=== PATIENT | male | born 1950 | race Caucasian/White ===

== ENCOUNTER 2021-11-04 07:41 | Emergency (ER) | payer MEDICAID ==
[~2021-11-04] VITALS: Ht 170.2 cm; Wt 104.5 kg
[2021-11-04] MEDS ORDERED: ACETAMINOPHEN 500 MG TABLET PO ONE (08:30)
[2021-11-04] MEDS ORDERED: HydrALAZINE HCL 20 MG/ML VIAL IVP ONE (08:30)
[2021-11-04] MEDS ORDERED: NITROGLYCERIN 2% (1 GM=INCH) PACKET TP ONE (08:30)
[2021-11-04 08:34] LABS: BASOPHILS % (AUTO) 0.6 % (0.0-2.0); EOSINOPHILS % (AUTO) 0.9 % (1.0-6.0); HEMATOCRIT 49.8 % (41-53); HEMOGLOBIN 17.1 g/dL (13.5-17.5); LYMPHOCYTES # (AUTO) 1.1 K/uL (1.0-4.8); LYMPHOCYTES % (AUTO) 13.8 % (22.0-44.0); MEAN CORPUSCULAR HEMOGLOBIN 30.9 pg (26.0-34.0); MEAN CORPUSCULAR HGB CONC 34.4 G/dL (31.0-37.0); MEAN CORPUSCULAR VOLUME 90 fL (80-100); MONOCYTES # (AUTO) 0.5 K/uL (0.1-1.0); MONOCYTES % (AUTO) 7.1 % (2.0-9.0); NEUTROPHILS % (AUTO) 77.6 % (40.0-70.0); PLATELET COUNT (AUTO) 191 K/uL (150-450); RED BLOOD CELL COUNT(AUTO) 5.55 MIL/uL (4.50-5.90); RED CELL DISTRIBUTION WIDTH 13.6 % (11.5-14.5)
[2021-11-04 08:35] LABS: COVID AG,FIA SOURCE NASOPHARYNGEAL
[2021-11-04] MEDS ORDERED: CARV6 PO (08:41)
[2021-11-04] MEDS ORDERED: FURO40 PO (08:41)
[2021-11-04] MEDS ORDERED: ATOR40TA28 PO (08:41)
[2021-11-04] MEDS ORDERED: POTA-92 PO (08:41)
[2021-11-04] MEDS ORDERED: ISOS30TA92 PO (08:41)
[2021-11-04] MEDS ORDERED: METF-1211 PO (08:41)
[2021-11-04] MEDS ORDERED: LOSA-382 PO (08:42)
[2021-11-04 08:43] LABS: CALCIUM, TOTAL 9.5 mg/dL (8.8-10.5); CREATININE 1.33 mg/dL (0.60-1.30); POTASSIUM 4.3 mmol/L (3.5-5.1)
[2021-11-04 08:48] LABS: BILIRUBIN,TOTAL 1.2 mg/dL (0.1-1.0); TOTAL PROTEIN, SERUM 7.6 g/dL (6.4-8.2)
[2021-11-04] MEDS ORDERED: CARVEDILOL 3.125 MG TABLET PO ONE (09:15)
[2021-11-04] MEDS ORDERED: ISOSORBIDE MONONITRATE 60 MG ER TABLET PO ONE (09:15)
[2021-11-04] MEDS ORDERED: LOSARTAN POTASSIUM 50 MG TABLET PO ONE (09:15)
[2021-11-04] MEDS ORDERED: FUROSEMIDE 40 MG/4 ML VIAL IVP ONE (09:15)
[2021-11-04 11:02] VITALS: BP 159/96
== END 2021-11-04 11:05 | disposition home or self-care (01) ==
LOC: EMS 07:48
DX: I16.0 Hypertensive urgency (principal); I11.0 Hypertensive heart disease with heart failure; I50.9 Heart failure, unspecified; Z20.822 Contact with and (suspected) exposure to COVID-19
CPT/HCPCS: 36415; 71045; 80053; 83880; 84484; 85025; 87426; 93005; 96374; 96375; 99291; J0360; J1940